=== PATIENT | female | born 1970 | race Caucasian/White ===

== ENCOUNTER → 2016-12-17 | Outpatient (CLI) | payer MEDICARE, OTHER ==
[~2016-12-17] MED LIST: CHOL400T10 PO; CYAN1TAB29 PO; FERR324T5 PO
== END | disposition home or self-care (01) ==
LOC: STAR 11:50
PROVIDERS: ATTEND Obstetrics & Gynecology Female Pelvic Medicine and Reconstructive Surgery
DX: Z02.9 Encounter for administrative examinations, unspecified (principal)

== ENCOUNTER 2016-12-27 05:29 | Observation (INO) | payer MEDICARE, OTHER ==
[~2016-12-27] VITALS: Ht 167.6 cm; Wt 100.4 kg
[2016-12-27 06:40] VITALS: BP 138/85
[2016-12-27] MEDS: LACTATED RINGERS 1,000 ML IV SCH ×2 (06:43→20:46)
[2016-12-27 06:47] LABS: HCG UR OBC PASS
[2016-12-27] MEDS ORDERED: BUPIVACAINE/PF-EPI 0.25% 1:200K ONE (07:08)
[2016-12-27] MEDS ORDERED: NEOMY/POLYMYXIN B GU IRR. 1 ML IRRIG ONE ×2 (07:08→07:30)
[2016-12-27] MEDS ORDERED: SCOPOLAMINE PATCH, 1.5MG PATCH.TD72 TD ONE ×2 (07:08→15:17)
[2016-12-27] MEDS ORDERED: FENTANYL PF 250 MCG/5ML ONE (07:21)
[2016-12-27] MEDS ORDERED: MIDAZOLAM 1 MG/ML, 2ML ONE (07:22)
[2016-12-27] MEDS ORDERED: PROPOFOL 10 MG/ML, 20ML ONE (07:26)
[2016-12-27] MEDS ORDERED: KETOROLAC 30 MG/1 ML ONE (07:26)
[2016-12-27] MEDS ORDERED: NEOSTIGMINE 1 MG/ML, 10ML ONE (07:26)
[2016-12-27] MEDS ORDERED: ONDANSETRON 2MG/ML, 2ML ONE ×3 (07:26→14:49)
[2016-12-27] MEDS ORDERED: ROCURONIUM 10 MG/ML ONE (07:26)
[2016-12-27] MEDS ORDERED: DEXAMETHASONE 4 MG/ML, 1ML ONE (07:26)
[2016-12-27] MEDS ORDERED: CEFAZOLIN 1,000 MG ONE (07:26)
[2016-12-27] MEDS ORDERED: SUCCINYLCHOLINE 20 MG/ML, 10ML ONE (07:26)
[2016-12-27] MEDS ORDERED: GLYCOPYRROLATE 0.2MG/1ML ONE (07:26)
[2016-12-27] MEDS ORDERED: ESMOLOL 100 MG/10 ML ONE (07:26)
[2016-12-27] MEDS ORDERED: HYDROmorphone 1 MG/ML, 1ML IV PRN (07:30)
[2016-12-27] MEDS ORDERED: MIDAZOLAM 1 MG/ML, 2ML IV PRN (07:30)
[2016-12-27] MEDS ORDERED: PROMETHAZINE 25 MG/ML, 1ML IV PRN (07:30)
[2016-12-27] MEDS ORDERED: OXYcodone 5 MG/5 ML ORAL.SOL UDC PO PRN (07:30)
[2016-12-27] MEDS ORDERED: METOCLOPRAMIDE 5 MG/ML, 2ML IV PRN (07:30)
[2016-12-27] MEDS ORDERED: ONDANSETRON 2MG/ML, 2ML IVPush PRN (07:30)
[2016-12-27] MEDS ORDERED: LABETALOL 5MG/ML, 20ML IV PRN (07:30)
[2016-12-27] MEDS ORDERED: ACETAMINOPHEN 325 MG TABLET PO PRN (07:30)
[2016-12-27] MEDS ORDERED: FENTANYL PF 100 MCG/2ML IV PRN (07:30)
[2016-12-27] MEDS ORDERED: hydrALAzine 20 MG/ML, 1ML IV PRN (07:30)
[2016-12-27] MEDS ORDERED: BUPIVACAINE/PF-EPI 0.25% 1:200K INFIL ONE (07:50)
[2016-12-27] MEDS ORDERED: FENTANYL PF 100 MCG/2ML ONE (09:35)
[2016-12-27] MEDS ORDERED: MEPERIDINE/PF 50 MG/ML ONE (09:35)
[2016-12-27] MEDS: MEPERIDINE/PF 25MG/0.5ML IVPush PRN ×2 (09:38→10:03)
[2016-12-27] MEDS: ONDANSETRON 2MG/ML, 2ML IVPush PRN ×2 (14:52→21:53)
[2016-12-27] MEDS ORDERED: HYDROmorphone 2 MG/ML, 1ML IVPush PRN (15:00)
[2016-12-27] MEDS ORDERED: HYDROcodone/APAP 5/325 TABLET PO PRN (15:00)
[2016-12-27] MEDS ORDERED: ACETAMINOPHEN 650 MG SUPP PR PRN (15:00)
[2016-12-27] MEDS ORDERED: OXYcodone/APAP 5/325MG TABLET PO PRN (15:00)
[2016-12-27] MEDS ORDERED: PROMETHAZINE 25 MG SUPP PR PRN (16:30)
[2016-12-27] MEDS ORDERED: IBUPROFEN 600 MG TABLET ONE (16:32)
[2016-12-27] MEDS: IBUPROFEN 600 MG TABLET PO SCH ×2 (16:44→21:00)
[2016-12-27] MEDS ORDERED: ZOLPIDEM 5MG TABLET PO PRN (19:30)
[2016-12-27 20:49] VITALS: BP 99/62
[2016-12-27] MEDS: DOCUSATE 100 MG CAPSULE PO SCH (21:00)
[2016-12-27] MEDS: SODIUM CHLORIDE FLUSH 10ML SYR IVF SCH (21:52)
[2016-12-27] MEDS: SIMETHICONE 80 MG CHEW TAB PO SCH (21:52)
[2016-12-28 00:16] VITALS: BP 111/69
[2016-12-28 04:05] VITALS: BP 110/70
[2016-12-28] MEDS: IBUPROFEN 600 MG TABLET PO SCH ×2 (05:29→10:55)
[2016-12-28 07:47] VITALS: BP 108/61
[2016-12-28] MEDS ORDERED: CHOLECALCIFEROL 400 UNITS TABLET PO SCH (09:00)
[2016-12-28] MEDS ORDERED: CYANOCOBALOMIN 100MCG TABLET PO SCH (09:00)
[2016-12-28] MEDS ORDERED: FERROUS SULFATE 325 MG TABLET PO SCH (09:00)
[2016-12-28] MEDS: DOCUSATE 100 MG CAPSULE PO SCH (09:01)
[2016-12-28] MEDS: SODIUM CHLORIDE FLUSH 10ML SYR IVF SCH (09:02)
[2016-12-28] MEDS: SIMETHICONE 80 MG CHEW TAB PO SCH (09:06)
[2016-12-28 11:44] VITALS: BP 112/71
== END 2016-12-28 12:34 | disposition home or self-care (01) ==
LOC: OUT 05:29 → 4NOR 19:21 → OUT 19:21 → 4NOR 20:08 → DCLOUNGE 12-28 11:10
PROVIDERS: ADMIT Obstetrics & Gynecology Female Pelvic Medicine and Reconstructive Surgery; ATTEND Obstetrics & Gynecology Female Pelvic Medicine and Reconstructive Surgery
DX: D25.9 Leiomyoma of uterus, unspecified (principal); N92.1 Excessive and frequent menstruation with irregular cycle; N94.6 Dysmenorrhea, unspecified; N39.3 Stress incontinence (female) (male); N94.10 Unspecified dyspareunia; N81.3 Complete uterovaginal prolapse; E66.9 Obesity, unspecified
CPT/HCPCS: 57265; 57288; 58552; 81025; 88305; 88307; 96374; C1771; G0378; J0330; J0690; J1100; J1170; J1885; J2175; J2250; J2405; J2704; J2710; J3010; J7120; J3490